=== PATIENT | female | born 1940 | race Two or more races ===

== ENCOUNTER 2017-09-21 08:40 | Outpatient (CLI) | payer OTHER | END 2017-09-21 08:46 | disposition home or self-care (01) | LOC: SONOGRAMA 08:40 | DX: E04.2 Nontoxic multinodular goiter (principal) ==

== ENCOUNTER 2017-10-02 08:51 | Outpatient (CLI) | payer OTHER | END 2017-10-02 08:53 | disposition home or self-care (01) | LOC: RX STUDY 08:51 | DX: R13.19 Other dysphagia (principal) ==